=== PATIENT | female | born 1970 | race Two or more races ===

== ENCOUNTER 2021-06-30 14:45 | Outpatient (CLI) | payer OTHER | END 2021-06-30 14:57 | disposition home or self-care (01) | LOC: RAD 14:45 | PROVIDERS: ATTEND Obstetrics & Gynecology Obstetrics | DX: M99.01 Segmental and somatic dysfunction of cervical region (principal); M99.02 Segmental and somatic dysfunction of thoracic region; M25.512 Pain in left shoulder ==

== ENCOUNTER 2022-06-15 08:46 | Outpatient (CLI) | payer OTHER | END 2022-06-15 08:54 | disposition home or self-care (01) | LOC: MAMO-SONO 08:46 | PROVIDERS: ATTEND Obstetrics & Gynecology Maternal & Fetal Medicine | DX: Z12.31 Encounter for screening mammogram for malignant neoplasm of breast (principal); N63.0 Unspecified lump in unspecified breast; N64.4 Mastodynia; N60.11 Diffuse cystic mastopathy of right breast; R10.11 Right upper quadrant pain ==

== ENCOUNTER 2023-01-09 17:54 | Emergency (ER) | payer OTHER ==
[~2023-01-09] VITALS: Ht 160 cm; Wt 56.7 kg
[2023-01-09] MEDS ORDERED: ARMOUR THYROID15 MG PO (18:06)
[2023-01-09] MEDS ORDERED: SERTRALINE20 MG/1 ML (18:06)
== END 2023-01-09 21:35 | disposition home or self-care (01) ==
LOC: ER 17:54
DX: N39.0 Urinary tract infection, site not specified (principal)

== ENCOUNTER 2023-01-10 10:39 | Outpatient (CLI) | payer OTHER ==
[~2023-01-10 10:39] MED LIST: ARMOUR THYROID15 MG PO; SERTRALINE20 MG/1 ML
== END 2023-01-10 10:47 | disposition home or self-care (01) ==
LOC: TOM 10:39
PROVIDERS: ATTEND Emergency Medicine
DX: N30.01 Acute cystitis with hematuria (principal)

== ENCOUNTER → 2023-11-15 | Outpatient (CLI) | payer OTHER | END | disposition home or self-care (01) | LOC: RAD 12:07 | PROVIDERS: ATTEND Specialist | DX: N20.0 Calculus of kidney (principal); E03.9 Hypothyroidism, unspecified; J45.998 Other asthma; M77.11 Lateral epicondylitis, right elbow ==

== ENCOUNTER 2024-08-23 15:11 | Outpatient (CLI) | payer OTHER | END 2024-08-23 15:20 | disposition home or self-care (01) | LOC: SONOGRAMA 15:11 | PROVIDERS: ATTEND Internal Medicine Endocrinology, Diabetes & Metabolism | DX: E04.1 Nontoxic single thyroid nodule (principal) ==

== ENCOUNTER 2024-08-28 13:34 | Outpatient (CLI) | payer OTHER | END 2024-08-28 13:45 | disposition home or self-care (01) | LOC: MAMO-SONO 13:34 | PROVIDERS: ATTEND Internal Medicine Endocrinology, Diabetes & Metabolism | DX: N64.9 Disorder of breast, unspecified (principal); Z12.31 Encounter for screening mammogram for malignant neoplasm of breast; I88.9 Nonspecific lymphadenitis, unspecified ==

== ENCOUNTER 2024-09-05 13:17 | Outpatient (CLI) | payer OTHER | END 2024-09-05 13:18 | disposition home or self-care (01) | LOC: NUCLEAR 13:17 | PROVIDERS: ATTEND Internal Medicine Endocrinology, Diabetes & Metabolism | DX: M81.0 Age-related osteoporosis without current pathological fracture (principal) ==